=== PATIENT | female | born 1950 | race African-American/Black ===

== ENCOUNTER 2020-02-24 13:57 | Inpatient (IN) | payer MEDICARE ==
[~2020-02-24] VITALS: Ht 177.8 cm; Wt 79.8 kg
--- NOTE | 2020-02-24 14:08 | NUR ---
Patient is seen standing in the room & not following simple commands, respiration:easy. Security assistance requested.
[2020-02-24] MEDS ORDERED: SULF1TAB48 PO (14:10)
[2020-02-24] MEDS ORDERED: IBUP-1953 PO (14:10)
--- NOTE | 2020-02-24 14:11 | NUR ---
Patient was heard repeatedly saying, "Adriane forever." with both arms moving up and down across her chest.
--- NOTE | 2020-02-24 14:15 | NUR ---
Patient refused to lay down on [place] for the chest-xray per radiology staff MD Tristian notified.
[2020-02-24] MEDS ORDERED: diphenhydrAMINE 50 MG/1 ML VIAL ONE (14:29)
[2020-02-24] MEDS ORDERED: ZIPRASIDONE MESYLATE 20 MG VIAL IM ONE ×3 (14:29→14:37)
[2020-02-24] MEDS ORDERED: diphenhydrAMINE 50 MG/1 ML VIAL IM ONE (14:30)
--- NOTE | 2020-02-24 14:40 | NUR ---
* 1st vial of Geodon was wasted (10mg was ready for injection) but the medicine leaked out of the syringe into the external skin and did not go inside the patient during initial administration.
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
--- NOTE | 2020-02-24 15:14 | NUR ---
Patient is resting comfortably on gurney & following simple commands. EKG & chest x-ray were done, pending medical clearance from the ER doctor@this time.
--- NOTE | 2020-02-24 15:37 | NUR ---
MHU charge histotechnologistLEN Drew requested for the patient to wait in ER while they will pass meds in MHU. Patient is resting quietly. She follows simple commands appropriately. We will monitor closely.
--- NOTE | 2020-02-24 15:38 | NUR ---
Patient is medically cleared by Dr Levi.
--- NOTE | 2020-02-24 16:02 | NUR ---
Patient is sleeping, easily arousable, calm, respiration:easy. Patient will go to MHU as soon as possible. learning and development director requested.
--- NOTE | 2020-02-24 16:14 | NUR ---
Patient drank a cup of juice and sips of water. Dinner tray was ordered.
[2020-02-24] MEDS ORDERED: MAG HYDROX/AL HYDROX/SIMETH 30 ML LIQUID UDC PO PRN (16:15)
[2020-02-24] MEDS ORDERED: MAGNESIUM HYDROXIDE 30 ML LIQUID UDC PO PRN (16:15)
[2020-02-24] MEDS ORDERED: ACETAMINOPHEN 325 MG TABLET PO PRN (16:15)
--- NOTE | 2020-02-24 16:31 | NUR ---
Patient voided using bedpan,
[2020-02-24 16:45] VITALS: BP 127/78
--- NOTE | 2020-02-24 17:53 | NUR ---
patient is admitted from ER 72 hour hold for danger to self, found crawing on the street, and making statements of imaginary people, patient brought to the unit by cynthia,transferred to the bed, patient is intermittently sleeping and dosing off, unable to assess the level of consciousness properly, seems she is alert to herself, unable to obtain history, and other information from patient however no skin issues noted, only noted with old scars to both knees and legs. MIREYA Estrada and DR Cha barnard, continue to monitor according to facility policy. no acute distress noted.
[2020-02-24] MEDS: LORAZEPAM 1 MG TABLET PO PRN (18:28)
[2020-02-24 20:13] VITALS: BP 126/84
[2020-02-24] MEDS: TEMAZEPAM 7.5 MG CAPSULE PO PRN (22:08)
--- NOTE | 2020-02-25 05:08 | NUR ---
Received patient in sheri chair last night. Awake but confused and disoriented. Patient believed that her " Boyfriend is waiting outside. I just spoke to him". Patient was unable to provide a number for this person and unable to tell keno writer / runner where she lives. Patient noted to be very weak and total assistance was given when patient needed to go the bathroom. Physical therapy ordered for an evaluation this am. Patient slept only 4.45 hours last night and continues to be confused this am. Patient denies taking any medications at home, despite having a history of open heart surgery. Continuing to monitor for safety and behavioral issues. No acute distress at this time.
[2020-02-25 07:30] VITALS: BP 125/84
[2020-02-25 07:41] LABS: BILIRUBIN,TOTAL 0.6 mg/dL (0.2-1.0); CREATININE 1.2 mg/dL (0.6-1.3); POTASSIUM 3.3 mmol/L (3.5-5.1); TOTAL PROTEIN, SERUM 7.1 g/dL (6.4-8.2)
[2020-02-25] MEDS ORDERED: IBUPROFEN 400 MG TABLET PO PRN (09:00)
[2020-02-25] MEDS ORDERED: SULFAMETH/TRIMETH 800/160 MG TABLET PO ONE (09:00)
[2020-02-25] MEDS ORDERED: POTASSIUM CHLORIDE 20 MEQ TAB.PRT.SR PO ONE (10:45)
[2020-02-25] MEDS: LORAZEPAM 1 MG TABLET PO PRN (12:05)
--- NOTE | 2020-02-25 12:06 | NUR ---
INITIAL DISCHARGE PLAN: Pt wishes to return home [address], [place] [id number] . SW will help form a safe and proper discharge in collaboration with .
[2020-02-25 16:00] VITALS: BP 136/92
[2020-02-25 20:00] VITALS: BP 121/91
[2020-02-25] MEDS: SULFAMETH/TRIMETH 800/160 MG TABLET PO SCH (20:23)
[2020-02-26 07:30] VITALS: BP 134/86
[2020-02-26] MEDS: LORAZEPAM 1 MG TABLET PO PRN (08:20)
[2020-02-26] MEDS: SULFAMETH/TRIMETH 800/160 MG TABLET PO SCH ×2 (08:21→20:15)
[2020-02-26] MEDS: risperiDONE 0.5 MG TABLET PO SCH ×2 (08:21→20:15)
--- NOTE | 2020-02-26 10:00 | NUR ---
Pt received, appeared anxious, pacing the halls couting, then repeatedly sitting and standing in the same chair. Elevated BP, made aware, PRN Ativan and routine medications administered. Pt compliant with PO medications. BP rechecked, reduced to 134/86, 84. Encouraged Pt to rest before group. Pt cooperative, no behavioral issues or acute distress noted. Pt denies SI/HI/ AH/VH, able to make needs known, and able to CFS at this time. Will continue to monitor for safety.
--- NOTE | 2020-02-26 10:39 | NUR ---
EDITA COORDINATION OF CARE: EDITA received a call from EDITA Perez as [facility] ([phone]) stating that pt left her personal belongings behind. He states that pts purse, keys, cell phone, ID's, and insurance cards are all at [facility]. EDITA advised Chris to mail her belongings to ATT: Justine Kelley, Escort Service Attendant Printing Engineer [address] [address]. He stated it was a big object and did not know if he is able to mail it. He stated that he may be able to get someone to drop it off next week. EDITA advised him to call SW before the expected drop off and coordinate the delivery with her.
--- NOTE | 2020-02-26 12:46 | NUR ---
Firearms Report: Refinery Superintendent completed and submitted a [employer] firearms report for 5150 danger to self and grave disability certification. A copy of report has been placed in patient chart.
[2020-02-26 16:00] VITALS: BP 128/81
[2020-02-26 20:06] VITALS: BP 128/81
[2020-02-27] MEDS: TEMAZEPAM 7.5 MG CAPSULE PO PRN (02:10)
[2020-02-27] MEDS: LORAZEPAM 1 MG TABLET PO PRN (04:30)
--- NOTE | 2020-02-27 04:53 | NUR ---
Received patient at 2300 last night. Patient was pleasantly confused at that time. As the night wore on, Patient became increasingly paranoid and delusional. Patient keeps thinking that there is a man in the room. Keeps asking and shouting for her "boyfriend Mathew " . Patient ran down the rajput and was pushing on the door to the unit in the middle of the night, trying to get out. Staff continues to reorient patient and redirect patient, which works part of the time only.PRN medications given with no effect. Patient has not slept up till this time. Speech Professor noticed patient talking to self for hours, and closes the room door over and over. Snack offered but patient will not eat because she believes the food is poisonous. Continuing to monitor this patient for behavior escalation, irritability and unpredictability.
[2020-02-27 07:30] VITALS: BP 142/101
[2020-02-27] MEDS: risperiDONE 0.5 MG TABLET PO SCH (08:38)
[2020-02-27] MEDS: SULFAMETH/TRIMETH 800/160 MG TABLET PO SCH ×2 (08:38→20:07)
[2020-02-27] MEDS ORDERED: risperiDONE 1 MG TABLET PO SCH (09:00)
[2020-02-27 17:09] VITALS: BP 179/102
--- NOTE | 2020-02-27 19:50 | NUR ---
Sleeping during initial rounds. Safetymeasures and fall prevention observed.
[2020-02-27 20:00] VITALS: BP 162/90
[2020-02-27] MEDS: risperiDONE 1 MG TABLET PO SCH (20:07)
--- NOTE | 2020-02-28 06:11 | NUR ---
Shift end report: Sleep been interrupted, bothered, irritated every time its noisy. Slept fair. No complaint of pain presented. Continue on antibiotics for UTI as ordered without s/s of adverse reaction. All needs attended and met. Continue current plan of care,
[2020-02-28 07:30] VITALS: BP 129/96
[2020-02-28] MEDS: risperiDONE 1 MG TABLET PO SCH ×2 (08:30→20:13)
[2020-02-28] MEDS: SULFAMETH/TRIMETH 800/160 MG TABLET PO SCH ×2 (08:30→20:13)
--- NOTE | 2020-02-28 10:04 | NUR ---
patient AOx1, patient seen sitting in her room starring blank in the wall, patient responding to internl stimuli, having paranoid delusion, did not touch her breakfast tray, patient verbalizes asking to open the door says that somebody waiting for her, MD aware about this behavior, no distress, will continue monitor
--- NOTE | 2020-02-28 18:51 | NUR ---
patient responding to internal stimuli, compliant with medication, not eating her food ,pacing in hallway.
[2020-02-28] MEDS: LORAZEPAM 1 MG TABLET PO PRN (20:13)
--- NOTE | 2020-02-28 22:38 | NUR ---
GPS Note: Received patient in her room. Refusing to have a snack or to allow the SLASHER HAND to check her VS. Patient needed some encouragement but did take the PM medications. Patient is delusional and was making statements " My boyfriend is with the [employer], and he will be here in 15 minutes to pick me up." Despite reorienting the patient to reality of the situation, patient still is responding to visual and auditory hallucinations, shouting out at people, in the room ,that are not there. Continuing to monitor patient for safety and behavioral escalation.
[2020-02-29 07:30] VITALS: BP 126/90
[2020-02-29] MEDS: risperiDONE 1 MG TABLET PO SCH ×3 (08:43→20:50)
[2020-02-29] MEDS: SULFAMETH/TRIMETH 800/160 MG TABLET PO SCH ×3 (08:43→20:50)
--- NOTE | 2020-02-29 10:53 | NUR ---
EDITA Coordination of Care: EDITA faxed patient's referral packet for review and possible placement to [facility] / [address] [place] [address] attention to Claudia Addendum: 03/02/20 at 1247 by GURMEET QUINN Edita received a call from Claudia admin coordinator at the facility who stated that due to COVID restrictions they cannot accept new patients until further notice. Addendum: 03/03/20 at 1401 by GURMEET QUINN EDITA received a call from Claudia admissions clerk at [facility] stating they are allowed to accept new patient as of tomorrow 03/04/20. Claudia stated that patient is welcome to their facility upon discharge.
[2020-02-29 15:34] VITALS: BP 120/81
--- NOTE | 2020-02-29 20:59 | NUR ---
patient refused all her meds. Hypervigilant, suspicions, guarded. Non-compliant with care.
[2020-03-01] MEDS: risperiDONE 1 MG TABLET PO SCH ×2 (08:28→21:04)
[2020-03-01] MEDS: SULFAMETH/TRIMETH 800/160 MG TABLET PO SCH ×2 (08:28→21:04)
--- NOTE | 2020-03-01 10:53 | NUR ---
Hearing Notification: Pt has probable cause hearing today and it was upheld for Grave Disability.
[2020-03-01] MEDS: ENSURE ENLIVE (VAN) 240 ML LIQUID PO SCH (16:37)
--- NOTE | 2020-03-01 18:04 | NUR ---
received patient still responding to internal stimuli, refused all medication and meals.yelling and screaming when nurse attempted to approach her.paranoia and delusional asked nurse to get out of her room.
--- NOTE | 2020-03-01 20:35 | NUR ---
Received patient in her room ,alert verbally responsive, confused and calm re orientation provided.Compliant with medication.Continue ton ATB therapy for UTI,no a/r noted.Will continue to monitor.
--- NOTE | 2020-03-02 06:15 | NUR ---
Patient slept about 5 hours.
--- NOTE | 2020-03-02 07:30 | NUR ---
Received pt. aaox1-2 sitting in bed starring at the floor, non-interactive and this morning refusing to take her schedule medications. Patient stating "I don't need any medications"
[2020-03-02] MEDS: ENSURE ENLIVE (VAN) 240 ML LIQUID PO SCH ×2 (08:58→17:41)
[2020-03-02] MEDS: SULFAMETH/TRIMETH 800/160 MG TABLET PO SCH (09:00)
[2020-03-02] MEDS: risperiDONE 1 MG TABLET PO SCH ×3 (09:00→21:00)
--- NOTE | 2020-03-02 11:40 | NUR ---
EDITA Individual Intervention: SW met with patient and provided brief individual counseling to help patient gain insight towards her presenting problems. Patient presents calm however uncooperative with engaging in a meaningful conversation due to having active auditory hallucinations. SW attempted to ask patient questions, however patient was responding to internal stimuli and whispering things such as "I am here, do you want me to go there". SW attempted to orient patient to reality, however patient apologized to this racebook writer that she is busy talking to someone and walked away.
--- NOTE | 2020-03-02 12:47 | NUR ---
EDITA Coordination of Care: SW faxed patient's referral packet for review and possible placement to [facility] attention to Phill ([phone]) who reviewed the clinicals and stated that patient is accepted to their facility for placement.
--- NOTE | 2020-03-02 20:00 | NUR ---
Received patient sitting up in bed, asleep but arouses to name. Uncooperative. Refused medication despite explanation.
--- NOTE | 2020-03-02 23:15 | NUR ---
Seen by Dr. Eubanks. aware that patient is non compliant with medications.
--- NOTE | 2020-03-03 06:32 | NUR ---
Slept x 7.3 hours during the night. Remains evasive and non compliant with medications.
[2020-03-03] MEDS: ENSURE ENLIVE (VAN) 240 ML LIQUID PO SCH ×2 (08:00→17:21)
[2020-03-03] MEDS: risperiDONE 1 MG TABLET PO SCH ×2 (09:00→20:43)
--- NOTE | 2020-03-03 13:44 | NUR ---
EDITA Family Contact: SW received a call from patient's sister, Cait ([phone]) wanting updates on how the patient is doing and what her discharge plan is. SW stated that the patient is not stable to return back to her apartment by herself and will require a assisted facility.
[2020-03-03 20:00] VITALS: BP 130/88
--- NOTE | 2020-03-03 21:00 | NUR ---
Patient Refused hs po meds. charge nurse made aware.
--- NOTE | 2020-03-04 06:22 | NUR ---
GPS: Remain calm and cooperative with care. slept 5.30 hrs through the night. no agitation noted.
[2020-03-04 07:30] VITALS: BP 128/94
[2020-03-04] MEDS: ENSURE ENLIVE (VAN) 240 ML LIQUID PO SCH ×2 (08:00→17:00)
[2020-03-04] MEDS: risperiDONE 1 MG TABLET PO SCH ×2 (09:00→20:43)
--- NOTE | 2020-03-04 14:00 | NUR ---
Gps/Retort Load Expediter- Refusing to eat, refusing po meds., not interactive, flat affect, withdrawn. Safety reviewed, emphasized.
--- NOTE | 2020-03-04 17:09 | NUR ---
Gps/Paper Box Cutter- Tried to recheck vital signs, patient refused, when asked why she refuses v/s, patient start yelling at the staff " do you understand Cook Islander, , i dont want it taken, and get out of here". Reviewed with patient reasons why she is here in the MHU. and how we can help her .Fluids offered,refused.
[2020-03-04] MEDS: ATORVASTATIN 10 MG TABLET PO SCH (20:43)
--- NOTE | 2020-03-05 00:21 | NUR ---
GPS/ Received pt in bed sitting up and awake. Responded when interacted to and said what do you want! Made pt aware if she need human resources assistant manager and she said I do not need anything leave me alone! Pt is not showing physical aggression toward staffs or roommate at this time but very paranoid and spacing out behavior. Pt refused routine medication and said I do not take medicine. Cha Hernandez was here and aware, with new orders receive for IM med if pt refuse po meds starting tomorrow. Monitoring pt at this time with anticipation with behavior and care.
[2020-03-05] MEDS: ENSURE ENLIVE (VAN) 240 ML LIQUID PO SCH ×2 (08:00→17:40)
[2020-03-05] MEDS: HALOPERIDOL 1 MG TABLET PO SCH ×2 (09:00→12:55)
[2020-03-05] MEDS: HALOPERIDOL LACTATE 5 MG/1 ML VIAL IM PRN ×2 (09:27→12:55)
[2020-03-05] MEDS ORDERED: HALOPERIDOL LACTATE 5 MG/1 ML VIAL IM PRN (15:45)
[2020-03-05 16:00] VITALS: BP 136/96
--- NOTE | 2020-03-05 16:00 | NUR ---
Gps/Dough Maker- Was able to take a nap this pm, noted > interactions with staff, redirectable, but refused po haldol, claimed she preferred to take IM haldol. instead. Able to drink her ensures, encouraged adequate oral intake. Flat , guarded answers to simple questions. Staring spells sitting at the edge of the bed, no agitation noted
[2020-03-05 20:00] VITALS: BP 121/82
[2020-03-05] MEDS: ATORVASTATIN 10 MG TABLET PO SCH (20:10)
[2020-03-05] MEDS ORDERED: HALOPERIDOL 1 MG TABLET PO SCH (21:00)
--- NOTE | 2020-03-06 05:37 | NUR ---
GPS: Remain calm and cooperative with medication and care. plesant upon approach.assisted with ad's. no agitation noted. resting in bed comfortably.
--- NOTE | 2020-03-06 06:26 | NUR ---
GPS: slept 4.45 hrs through the night.
[2020-03-06 07:30] VITALS: BP 159/98
[2020-03-06] MEDS: ENSURE ENLIVE (VAN) 240 ML LIQUID PO SCH ×2 (08:54→16:26)
[2020-03-06] MEDS ORDERED: HALOPERIDOL 1 MG TABLET PO SCH (09:00)
[2020-03-06] MEDS ORDERED: BENZTROPINE MESYLATE 2 MG/2 ML AMPUL IM PRN (12:00)
[2020-03-06 16:18] VITALS: BP 121/93
[2020-03-06] MEDS: HALOPERIDOL 2 MG TABLET PO SCH ×2 (16:24→22:24)
[2020-03-06] MEDS: BENZTROPINE MESYLATE 0.5 MG TABLET PO SCH ×2 (16:24→22:24)
--- NOTE | 2020-03-06 16:27 | NUR ---
Gps/Rn Emergency- Patient sitting at the edge of bed, smiling when greeted happy Birthday, responded" thank you", encouraged to drink her ensure preferred chocolate per pt. Noted smiles on her face, hesitancy to talk, encouraged interaction, and to make her needs known to the staff.
[2020-03-06 20:46] VITALS: BP 128/91
[2020-03-06] MEDS: ATORVASTATIN 10 MG TABLET PO SCH (22:24)
[2020-03-07] MEDS: ENSURE ENLIVE (VAN) 240 ML LIQUID PO SCH ×2 (08:00→17:07)
[2020-03-07 08:14] LABS: BASOPHILS % (AUTO) 0.3 % (0.0-2.0); HEMOGLOBIN 16.5 g/dL (10.9-14.3); LYMPHOCYTES # (AUTO) 0.4 K/uL (20.0-40.0); LYMPHOCYTES % (AUTO) 2.9 % (20.5-51.5); MEAN CORPUSCULAR HEMOGLOBIN 31.2 uug (24.7-32.8); MEAN CORPUSCULAR HGB CONC 33 g/dL (32.3-35.6); MEAN CORPUSCULAR VOLUME 94.4 fL (75.5-95.3); MONOCYTES # (AUTO) 0.7 K/uL (2.0-10.0); MONOCYTES % (AUTO) 4.5 % (0.0-11.0); NEUTROPHILS # (AUTO) 14.1 K/uL (1.8-8.9); NEUTROPHILS % (AUTO) 92.3 % (38.5-71.5); PLATELET COUNT (AUTO) 76 K/uL (179-408); RED BLOOD CELL COUNT(AUTO) 5.29 MIL/uL (3.63-4.92); WHITE BLOOD COUNT (AUTO) 15.2 K/uL (3.8-11.8)
[2020-03-07 08:53] LABS: ALANINE AMINOTRANSFERASE 37 U/L (14-59); ALKALINE PHOSPHATASE 103 U/L (50-136); ASPARTATE AMINOTRANSFERASE 26 U/L (15-37); BILIRUBIN,DIRECT 0.1 mg/dL (0.0-0.2); BILIRUBIN,TOTAL 0.5 mg/dL (0.2-1.0); CARBON DIOXIDE 29 mmol/L (21-32); CHLORIDE 111 mmol/L (98-107); CREATININE 1.5 mg/dL (0.6-1.3); GLUCOSE 151 mg/dL (74-106); MAGNESIUM 3.2 mg/dL (1.8-2.4); PHOSPHOROUS 3.1 mg/dL (2.5-4.9); POTASSIUM 4.3 mmol/L (3.5-5.1); TOTAL PROTEIN, SERUM 8.5 g/dL (6.4-8.2); UREA NITROGEN, BLOOD 63 mg/dL (7-18)
[2020-03-07 09:14] VITALS: BP 111/75
[2020-03-07 09:18] LABS: THYROID STIMULATING HORMONE 0.232 mIU/mL (0.358-3.740)
[2020-03-07] MEDS: HALOPERIDOL 2 MG TABLET PO SCH ×3 (09:47→20:19)
[2020-03-07] MEDS: BENZTROPINE MESYLATE 0.5 MG TABLET PO SCH ×3 (09:47→20:19)
[2020-03-07] MEDS: AZITHROMYCIN 250 MG TABLET PO SCH (12:00)
--- NOTE | 2020-03-07 15:39 | NUR ---
did patient rounding. found 2mg haldol pill bedside. asked patient if she took the medication. patient states that she said yes. watched patient swallow the medication in the morning. pt suspected to pocket the medication in the mouth. will continue to monitor for behavioral changes throughout shift.
[2020-03-07 17:17] LABS: BAND % (MANUAL) 1 % (0-10); LYMPHOCYTES % (MANUAL) 6 % (20-40); MONOCYTES % (MANUAL) 5 % (2-10); NEUTROPHILS % (MANUAL) 88 % (42-75)
[2020-03-07 17:36] VITALS: BP 135/88
[2020-03-07 18:00] LABS: *BILIRUBIN,URIN NEGATIVE (NEGATIVE); *BLOOD, URINE NEGATIVE (NEGATIVE); *CLARITY,URINE CLEAR (CLEAR); *COLOR,URINE YELLOW (YELLOW); *KETONES,URINE TRACE (NEGATIVE); *UROBILINOGEN,URINE 0.2 E.U./dl (NORMAL); LEUKOCYTE ESTERASE ,URINE NEGATIVE (NEGATIVE); NITRITE, URINE NEGATIVE (NEGATIVE); PH,URINE 5.5 (5.0-8.0); UGLUCOSE NEGATIVE (NEGATIVE)
[2020-03-07] MEDS ORDERED: HALOPERIDOL DECANOATE 50 MG/1 ML AMPUL IM ONE (19:00)
[2020-03-07 20:00] VITALS: BP 135/85
[2020-03-07] MEDS: ATORVASTATIN 10 MG TABLET PO SCH (20:20)
[2020-03-07 20:24] LABS: BACTERIA,URINE NONE SEEN /HPF (NONE SEEN); RBC,URINE 0-3 /HPF (0-3); SQUAMOUS EPITHELIAL CELL,UR FEW /HPF (NONE SEEN); WBC,URINE 0-3 /HPF (0-3)
[2020-03-07 20:25] LABS: URINE AMORPHOUS URATE MODERATE /HPF
--- NOTE | 2020-03-07 20:57 | NUR ---
Pt atb therapy Azithromycin 250mg tab was administered by morning nurse. per outgoing nurse.
--- NOTE | 2020-03-08 04:53 | NUR ---
GPS/rn - Pt was up in bed and resting. Pt responded more appropriate verbally today and no excessive behavior noted. Pt was cooperative with PO medications and no reise protocol was done. Pt c/o cold and extra blanket was given. Will monitor pt and anticipate any changes. Q/15mins head count ongoing.
[2020-03-08 06:54] LABS: BASOPHILS # (AUTO) 0.1 K/uL (0.0-8.0); BASOPHILS % (AUTO) 0.5 % (0.0-2.0); HEMATOCRIT 50.5 % (31.2-41.9); HEMOGLOBIN 16.5 g/dL (10.9-14.3); LYMPHOCYTES # (AUTO) 0.4 K/uL (20.0-40.0); LYMPHOCYTES % (AUTO) 2.7 % (20.5-51.5); MEAN CORPUSCULAR HEMOGLOBIN 30.7 uug (24.7-32.8); MEAN CORPUSCULAR HGB CONC 33 g/dL (32.3-35.6); MEAN CORPUSCULAR VOLUME 94.3 fL (75.5-95.3); MONOCYTES # (AUTO) 0.7 K/uL (2.0-10.0); MONOCYTES % (AUTO) 4.4 % (0.0-11.0); NEUTROPHILS # (AUTO) 15.4 K/uL (1.8-8.9); NEUTROPHILS % (AUTO) 92.4 % (38.5-71.5); PLATELET COUNT (AUTO) 71 K/uL (179-408); RED BLOOD CELL COUNT(AUTO) 5.36 MIL/uL (3.63-4.92); WHITE BLOOD COUNT (AUTO) 16.6 K/uL (3.8-11.8)
[2020-03-08 07:03] LABS: CARBON DIOXIDE 30 mmol/L (21-32); CHLORIDE 113 mmol/L (98-107); CREATININE 1.7 mg/dL (0.6-1.3); GLUCOSE 154 mg/dL (74-106); POTASSIUM 4.1 mmol/L (3.5-5.1); UREA NITROGEN, BLOOD 66 mg/dL (7-18)
[2020-03-08 07:43] VITALS: BP 136/103
[2020-03-08] MEDS: ENSURE ENLIVE (VAN) 240 ML LIQUID PO SCH (08:00)
[2020-03-08] MEDS: BENZTROPINE MESYLATE 0.5 MG TABLET PO SCH (08:35)
[2020-03-08] MEDS: HALOPERIDOL 2 MG TABLET PO SCH (08:35)
[2020-03-08] MEDS ORDERED: HALOPERIDOL DECANOATE 50 MG/1 ML AMPUL IM ONE (09:00)
--- NOTE | 2020-03-08 10:51 | NUR ---
EDITA Individual Intervention: SW met with patient to provide brief individual counseling to help patient gain insight towards her presenting problems. Patient was observed sitting at the edge of her bed staring at the wall. This health underwriter attempted to ask patient questions regarding her current mood and feelings. Patient stated "I am fine you don't need to know more than that". Patient appeared distracted by internal stimuli and was unable to engage in a proper conversation. SE encouraged patient to join group activities and interact with peers. Pt stated "I don't want to, thanks".
[2020-03-08] MEDS: AZITHROMYCIN 250 MG TABLET PO SCH (11:09)
--- NOTE | 2020-03-08 14:43 | NUR ---
received a call from the lab , per jodie patients D-dimer critically high, SIGNAL INTELLIGENCE ANALYST Merline aware with new orders made
[2020-03-08] MEDS ORDERED: ENOXAPARIN SODIUM 40 MG/0.4 ML DISP.SYRIN SQ SCH (15:00)
[2020-03-08 16:11] VITALS: BP 126/100
--- NOTE | 2020-03-08 16:52 | NUR ---
Patient transferred to medical - surgical floor per order. Prior to discharge patient received a Lovenox injection as ordered and a Covid testing was done. Report given to [place] RN. Patient agreeable to transfer and is medication compliant at this time. Patients 5250 D/C per Dr. Eubanks and Francisco Borrego BUSH REGENERATOR will continue care. Order received for discharge from MHU and admit to Medical -Surgical floor. Patient denies SI/ HI at this time, and verbalized understanding of transfer. No acute distress noted.
[2020-03-08] MEDS ORDERED: AZIT500T PO (18:19)
[2020-03-08] MEDS ORDERED: LORA-259 PO (18:19)
[2020-03-08] MEDS ORDERED: ENOX40DI SQ (18:19)
[2020-03-08] MEDS ORDERED: LACT-246 PO (18:19)
[2020-03-08] MEDS ORDERED: MAG30ORA PO (18:19)
[2020-03-08] MEDS ORDERED: ACET-2154 PO ×2 (18:19)
[2020-03-08] MEDS ORDERED: MAGN400O6 PO (18:19)
[2020-03-08] MEDS ORDERED: IBUP-1953 PO (18:19)
[2020-03-08] MEDS ORDERED: ATOR10TA PO (18:19)
[2020-03-08] MEDS ORDERED: BENZ0.5T43 PO (18:19)
[2020-03-08] MEDS ORDERED: HALO2TAB PO ×2 (18:19)
[2020-03-08] MEDS ORDERED: TEMA15CA PO (18:19)
--- NOTE | 2020-03-09 10:35 | NUR ---
GPS Transfer Note and Discharge Plan: Patient was discharged from MHU and transferred to the Medical Floor due to Sepsis, PNA, r/o COVID. Patient's 5[address] was discontinued to Dr. Eubanks. [facility] at [facility], [place] [address] ([phone]) and can admit upon discharge from the hospital. EDITA spoke with [facility] recruitment coordinator at [facility] who stated patient can admit to their facility when discharged from the hospital. Patient is alert and oriented x2, and is unable to plan for self-care, and denies any suicidal or homicidal ideation. Patient is aware and agreeable with discharge plans. Patient presents with anxious mood and congruent affect. Patient will continue to follow-up with her Psychiatrist Dr. Eubanks and Lay Out [place] [address] ([phone]). Patient does not have any supportive contacts to notify of discharge plans. EDITA Perez at [facility] ([phone]) has pts belongings (purse, cell phone, keys, Ids).
[2020-03-11] MEDS ORDERED: PANT40TA2 PO (12:16)
[2020-03-11] MEDS ORDERED: APIX5TAB PO (12:16)
== END 2020-03-08 17:03 | disposition short-term general hospital (02) | DRG 885 ==
LOC: ER 13:57 → GPS 15:39
PROVIDERS: ADMIT Psychiatry & Neurology Psychiatry; ATTEND Family Medicine
DX: F29 Unspecified psychosis not due to a substance or known physiological condition (principal); N17.0 Acute kidney failure with tubular necrosis; J18.9 Pneumonia, unspecified organism; F03.91 Unspecified dementia, unspecified severity, with behavioral disturbance; E44.1 Mild protein-calorie malnutrition; E78.5 Hyperlipidemia, unspecified; E87.6 Hypokalemia; E83.52 Hypercalcemia; I25.10 Atherosclerotic heart disease of native coronary artery without angina pectoris; Z95.1 Presence of aortocoronary bypass graft; F03.90 Unspecified dementia, unspecified severity, without behavioral disturbance, psychotic disturbance, mood disturbance, and anxiety; Z73.6 Limitation of activities due to disability; R73.9 Hyperglycemia, unspecified; Z68.25 Body mass index [BMI] 25.0-25.9, adult; R74.0 Nonspecific elevation of levels of transaminase and lactic acid dehydrogenase [LDH]; F25.0 Schizoaffective disorder, bipolar type; Z91.19 Patient's noncompliance with other medical treatment and regimen
CPT/HCPCS: 36415; 70030-TC; 71045; 83615; 83735; 84100; 84443; 85025; 86140; 87040; 93005; 93307; A4663; J1200; J1630; J1631; J1650; J3486; Q0144; U0003-CS

== ENCOUNTER 2020-03-08 16:29 | Inpatient (IN) | payer MEDICARE ==
[~2020-03-08] VITALS: Ht 177.8 cm; Wt 84.8 kg
[~2020-03-08 16:29] MED LIST: IBUP-1953 PO; SULF1TAB48 PO
[2020-03-08 17:04] VITALS: BP 137/93
[2020-03-08] MEDS ORDERED: ATOR10TA PO (18:19)
[2020-03-08] MEDS ORDERED: LORA-259 PO (18:19)
[2020-03-08] MEDS ORDERED: AZIT500T PO (18:19)
[2020-03-08] MEDS ORDERED: HALO2TAB PO ×2 (18:19)
[2020-03-08] MEDS ORDERED: TEMA15CA PO (18:19)
[2020-03-08] MEDS ORDERED: MAGN400O6 PO (18:19)
[2020-03-08] MEDS ORDERED: LACT-246 PO (18:19)
[2020-03-08] MEDS ORDERED: BENZ0.5T43 PO (18:19)
[2020-03-08] MEDS ORDERED: MAG30ORA PO (18:19)
[2020-03-08] MEDS ORDERED: ENOX40DI SQ (18:19)
[2020-03-08] MEDS ORDERED: IBUP-1953 PO (18:19)
[2020-03-08] MEDS ORDERED: ACET-2154 PO ×2 (18:19)
--- NOTE | 2020-03-08 18:54 | NUR ---
RECEIVED PATIENT AWAKE, ALERT AND ORIENTED, CALM DEMEANOR. RIGHT LATERAL ANKLE SCAB NOTED. DENIES COUGHING. NO FEVER. NO S/S OF DISTRESS OR SOB. VS WNL. Addendum: 03/08/20 at 1858 by FLOR ARMENTA RN HOME MED LIST ENTERED. PATIENT ADMISSION NOT FULLY FINISHED. WILL ENDORSE TO MATERIAL CONTROL CLERK.
[2020-03-08] MEDS ORDERED: MAGNESIUM HYDROXIDE 30 ML LIQUID UDC PO PRN (19:15)
[2020-03-08] MEDS ORDERED: ACETAMINOPHEN 325 MG TABLET PO PRN (19:15)
[2020-03-08] MEDS ORDERED: Z GUARD REMEDY PASTE 57 GM TUBE TOP PRN (19:15)
[2020-03-08] MEDS ORDERED: TEMAZEPAM 15 MG CAPSULE PO PRN (19:15)
[2020-03-08] MEDS ORDERED: LORAZEPAM 1 MG TABLET PO PRN (19:15)
[2020-03-08] MEDS ORDERED: ONDANSETRON 4 MG/2 ML VIAL IV PRN (19:15)
[2020-03-08] MEDS ORDERED: ZOLPIDEM 5 MG TABLET PO PRN (19:15)
[2020-03-08] MEDS ORDERED: HYDROCODONE/APAP 5-325MG TABLET PO PRN (19:15)
[2020-03-08 20:19] VITALS: BP 122/85
[2020-03-08] MEDS: ATORVASTATIN 10 MG TABLET PO SCH (20:45)
[2020-03-08] MEDS: HALOPERIDOL 2 MG TABLET PO SCH (20:45)
[2020-03-08] MEDS: CEFTRIAXONE 1 G in IV DEXTROSE 5% 50 ML IV SCH (21:21)
--- NOTE | 2020-03-08 21:55 | NUR ---
Patient admitted from MHU. Dx: Sepsis, PNA, r/O COVID. During initial rounds, patient is guarded, agitated. Introduced myself as her nurse for tonight and patient stated "I don't have a nurse tonight, I am going to leave this place" Explained to patient why she was here for possible PNA or infection, patient stated she has no infection, she is perfectly healthy. Patient is oriented to person and place. Hold was d/c, called Dr. Eubanks and explained what was happening. Dr. Eubanks stated that he wants to reinstate the 14 day hold up on 03/11 and order for 1:1 sitter. Initially patient refused to take any medications and insert an IV. Offered patient some food and explained to patient again reason for hospitalization and reassured her. Patient calmed down and took PO medication, she is on reise, but patient agreed to take PO Haldol. Was able to insert IV and start antibiotics. Oriented patient to unit and room. Patient on droplet/contact isolation. Bed is low and locked, call light within reach. Will continue to monitor.
--- NOTE | 2020-03-08 22:21 | NUR ---
Admission assessment obtained from previous records as patient refuses to answer some questions. Patient denies any PMH, any family, and says she lives alone in a house. Patient is pleasant and cooperative with care at this time. Able to ambulate to restroom. Will continue to monitor.
[2020-03-08] MEDS ORDERED: HALOPERIDOL LACTATE 5 MG/1 ML VIAL IM PRN (23:45)
[2020-03-09 06:11] LABS: BASOPHILS % (AUTO) 0.1 % (0.0-2.0); EOSINOPHILS % (AUTO) 0.2 % (0.0-7.0); HEMATOCRIT 43.6 % (31.2-41.9); HEMOGLOBIN 14.3 g/dL (10.9-14.3); LYMPHOCYTES # (AUTO) 0.8 K/uL (20.0-40.0); LYMPHOCYTES % (AUTO) 7.4 % (20.5-51.5); MEAN CORPUSCULAR HEMOGLOBIN 30.9 uug (24.7-32.8); MEAN CORPUSCULAR HGB CONC 33 g/dL (32.3-35.6); MEAN CORPUSCULAR VOLUME 94.2 fL (75.5-95.3); MONOCYTES # (AUTO) 0.7 K/uL (2.0-10.0); MONOCYTES % (AUTO) 6.6 % (0.0-11.0); NEUTROPHILS # (AUTO) 9.8 K/uL (1.8-8.9); NEUTROPHILS % (AUTO) 85.7 % (38.5-71.5); RED BLOOD CELL COUNT(AUTO) 4.63 MIL/uL (3.63-4.92); WHITE BLOOD COUNT (AUTO) 11.4 K/uL (3.8-11.8)
[2020-03-09 06:14] LABS: CARBON DIOXIDE 31 mmol/L (21-32); CHLORIDE 110 mmol/L (98-107); CREATININE 1.4 mg/dL (0.6-1.3); GLUCOSE 125 mg/dL (74-106); MAGNESIUM 2.5 mg/dL (1.8-2.4); PHOSPHOROUS 3.7 mg/dL (2.5-4.9); UREA NITROGEN, BLOOD 50 mg/dL (7-18)
[2020-03-09] MEDS: PANTOPRAZOLE SODIUM 40 MG TABLET.DR PO SCH (06:14)
[2020-03-09 06:16] LABS: PLATELET COUNT (AUTO) 65 K/uL (179-408)
[2020-03-09 06:23] VITALS: BP 125/74
[2020-03-09] MEDS ORDERED: HEPARIN SODIUM,PORCINE 5,000 UNITS/ML VIAL SQ SCH (09:00)
--- NOTE | 2020-03-09 10:41 | NUR ---
GPS Transfer Note and Discharge Plan: Patient was discharged from MHU and transferred to the Medical Floor due to Sepsis, PNA, r/o COVID. Patient's 5[address] hold was discontinued [address] Dr. Eubanks. Patient was accepted at [facility] facility, [place] [address] ([phone]) and can admit upon discharge from the hospital. EDITA spoke with [facility] visual coordinator at [facility] who stated patient can admit to their facility when discharged from the hospital. Patient is alert and oriented x2, and is unable to plan for self-care, and denies any suicidal or homicidal ideation. Patient is aware and agreeable with discharge plans. Patient presents with anxious mood and congruent affect. Patient will continue to follow-up with her Psychiatrist Dr. Eubanks and Night Clerk Aud[place] [address] ([phone]). Patient does not have any supportive contacts to notify of discharge plans. EDITA Perez at [facility] ([phone]) has pts belongings (purse, cell phone, keys, Ids).
[2020-03-09] MEDS: HALOPERIDOL 2 MG TABLET PO SCH ×3 (11:16→20:08)
[2020-03-09] MEDS: ENSURE ENLIVE (VAN) 240 ML LIQUID PO SCH ×2 (11:19→16:00)
[2020-03-09] MEDS: BENZTROPINE MESYLATE 0.5 MG TABLET PO SCH ×3 (11:19→16:00)
[2020-03-09] MEDS ORDERED: AZITHROMYCIN IV 500 MG in IV DEXTROSE 5% 250 ML IV SCH (12:00)
[2020-03-09 12:45] VITALS: BP 106/72
--- NOTE | 2020-03-09 13:09 | NUR ---
Received phone call from Dr. Stevens from Radiology in regards to the Bilateral US study performed today. Dr. Rogers notified of radiologists report and anticoagulation will be started for the patient per Dr. Rogers.
--- NOTE | 2020-03-09 13:14 | NUR ---
EDITA Family Contact: SW spoke with patient's sister, Cait ([phone]) and informed of patient's transfer to the medical floor from MHU. Cait requested to stay updated about the pt's treatment and discharge plan.
--- NOTE | 2020-03-09 14:57 | NUR ---
EDITA Note: EDITA spoke with Dr. Eubanks who stated that he is not yet sure when the patient will be ready for discharge, either to a Penitentiary Facility or back to MHU.
[2020-03-09] MEDS: APIXABAN 5 MG TABLET PO SCH ×2 (15:43→20:09)
[2020-03-09 15:50] VITALS: BP 106/72
--- NOTE | 2020-03-09 19:10 | NUR ---
Pt in bed, awake. Pt is cooperative, flat affect. Denies any acute distress or pain at this time. V/S stable on room air. IV on the Rhand is intact. Sitter on site noted. Safety measures in place. Bed low and locked in position. Will continue with the plan of care.
[2020-03-09] MEDS: ATORVASTATIN 10 MG TABLET PO SCH (20:08)
[2020-03-09] MEDS: CEFTRIAXONE 1 G in IV DEXTROSE 5% 50 ML IV SCH (20:08)
[2020-03-09 20:43] VITALS: BP 114/81
[2020-03-10] MEDS: PANTOPRAZOLE SODIUM 40 MG TABLET.DR PO SCH (06:06)
[2020-03-10 06:21] LABS: BASOPHILS % (AUTO) 0.1 % (0.0-2.0); EOSINOPHILS % (AUTO) 0.5 % (0.0-7.0); HEMATOCRIT 44.2 % (31.2-41.9); HEMOGLOBIN 14.6 g/dL (10.9-14.3); LYMPHOCYTES % (AUTO) 12.9 % (20.5-51.5); MEAN CORPUSCULAR HEMOGLOBIN 31.1 uug (24.7-32.8); MEAN CORPUSCULAR HGB CONC 33 g/dL (32.3-35.6); MEAN CORPUSCULAR VOLUME 94.4 fL (75.5-95.3); MONOCYTES # (AUTO) 0.6 K/uL (2.0-10.0); MONOCYTES % (AUTO) 7.3 % (0.0-11.0); NEUTROPHILS % (AUTO) 79.2 % (38.5-71.5); RED BLOOD CELL COUNT(AUTO) 4.68 MIL/uL (3.63-4.92); WHITE BLOOD COUNT (AUTO) 7.6 K/uL (3.8-11.8)
[2020-03-10 06:25] LABS: PLATELET COUNT (AUTO) 66 K/uL (179-408)
--- NOTE | 2020-03-10 06:27 | NUR ---
Pt slept intermittently. Patient remained calm and cooperative through the night. V/S stable on room air. All prescribed medications given, pt tolerated. Sitter on site. Comfort care and needs attended. Safety measures in place. Will endorse to the oncoming nurse accordingly.
[2020-03-10 06:58] LABS: BILIRUBIN,DIRECT 0.1 mg/dL (0.0-0.2); BILIRUBIN,TOTAL 0.5 mg/dL (0.2-1.0); CREATININE 1.2 mg/dL (0.6-1.3); MAGNESIUM 2.7 mg/dL (1.8-2.4); PHOSPHOROUS 3.1 mg/dL (2.5-4.9); POTASSIUM 4.1 mmol/L (3.5-5.1); TOTAL PROTEIN, SERUM 6.5 g/dL (6.4-8.2)
[2020-03-10 08:01] LABS: THYROID STIMULATING HORMONE 0.669 mIU/mL (0.358-3.740)
[2020-03-10] MEDS: BENZTROPINE MESYLATE 0.5 MG TABLET PO SCH ×3 (08:02→17:57)
[2020-03-10] MEDS: HALOPERIDOL 2 MG TABLET PO SCH ×3 (08:03→21:33)
[2020-03-10] MEDS: ENSURE ENLIVE (VAN) 240 ML LIQUID PO SCH ×2 (08:04→17:59)
[2020-03-10] MEDS: APIXABAN 5 MG TABLET PO SCH ×2 (08:06→21:34)
[2020-03-10 09:30] VITALS: BP 118/77
--- NOTE | 2020-03-10 09:30 | NUR ---
Received patient in bed with a sitter by bed side for safety; Patient is AAO x 2-3. Able to express needs. Vital sings stable. NO complains of pain at this time. Patient was compliant with medications. Denies and SI up on assessment. Patient also compliant with most care. No agitation noted. Safety measures in place and will continue with care.
--- NOTE | 2020-03-10 13:20 | NUR ---
Patient in bed with sitter in the room, calm and watching TV. Safety measures in place, need attended and will continue with care.
[2020-03-10 14:00] VITALS: BP 118/77
[2020-03-10 17:08] LABS: *BILIRUBIN,URIN NEGATIVE (NEGATIVE); *CLARITY,URINE SLIGHTLY CLOUDY (CLEAR); *COLOR,URINE YELLOW (YELLOW); *KETONES,URINE NEGATIVE (NEGATIVE); *UROBILINOGEN,URINE 0.2 E.U./dl (NORMAL); LEUKOCYTE ESTERASE ,URINE NEGATIVE (NEGATIVE); NITRITE, URINE NEGATIVE (NEGATIVE); PH,URINE 5.5 (5.0-8.0); UGLUCOSE NEGATIVE (NEGATIVE)
[2020-03-10 17:09] LABS: *CREATININE,URINE 269.5 mg/dL (30-125); *URINE TOTAL PROTEIN RANDOM 22.7 mg/dL (<150/24HR)
[2020-03-10 17:10] LABS: *BLOOD, URINE TRACE (NEGATIVE)
--- NOTE | 2020-03-10 19:28 | NUR ---
End of shift report given to PM nurse.
--- NOTE | 2020-03-10 19:30 | NUR ---
Pt in bed, awake. Pt is more pleasant and smiles more often now. Denies any pain or SOB. Sitter is inside the room. V/S stable on room air. Safety measures in place. Will continue with the plan of care
[2020-03-10 20:00] VITALS: BP 102/72
[2020-03-10 21:17] LABS: BACTERIA,URINE FEW /HPF (NONE SEEN); SQUAMOUS EPITHELIAL CELL,UR MANY /HPF (NONE SEEN)
[2020-03-10] MEDS: ATORVASTATIN 10 MG TABLET PO SCH (21:33)
[2020-03-10] MEDS: CEFTRIAXONE 1 G in IV DEXTROSE 5% 50 ML IV SCH (21:33)
[2020-03-11 05:08] VITALS: BP 116/78
[2020-03-11] MEDS: PANTOPRAZOLE SODIUM 40 MG TABLET.DR PO SCH (06:17)
[2020-03-11 06:27] LABS: BASOPHILS % (AUTO) 0.2 % (0.0-2.0); EOSINOPHILS # (AUTO) 0.1 K/uL (0.0-0.7); EOSINOPHILS % (AUTO) 1.3 % (0.0-7.0); HEMATOCRIT 40.7 % (31.2-41.9); HEMOGLOBIN 13.5 g/dL (10.9-14.3); MEAN CORPUSCULAR HEMOGLOBIN 31.1 uug (24.7-32.8); MEAN CORPUSCULAR HGB CONC 33 g/dL (32.3-35.6); MEAN CORPUSCULAR VOLUME 93.7 fL (75.5-95.3); MONOCYTES # (AUTO) 0.6 K/uL (2.0-10.0); MONOCYTES % (AUTO) 7.1 % (0.0-11.0); NEUTROPHILS # (AUTO) 6.5 K/uL (1.8-8.9); NEUTROPHILS % (AUTO) 79.4 % (38.5-71.5); RED BLOOD CELL COUNT(AUTO) 4.35 MIL/uL (3.63-4.92); WHITE BLOOD COUNT (AUTO) 8.1 K/uL (3.8-11.8)
[2020-03-11 06:28] LABS: PLATELET COUNT (AUTO) 80 K/uL (179-408)
--- NOTE | 2020-03-11 07:00 | NUR ---
Pt slept through the night. Denies acute distress or pain at this time. V/S stable on room air. Pt calm and cooperative. Took all prescribed medications. Sitter on the bedside. Comfort care and needs attended. Safety measures in place. Call light within reach. Will endorse to the oncoming nurse.
[2020-03-11 07:01] LABS: CREATININE 1.2 mg/dL (0.6-1.3); MAGNESIUM 2.2 mg/dL (1.8-2.4); PHOSPHOROUS 2.5 mg/dL (2.5-4.9); POTASSIUM 3.6 mmol/L (3.5-5.1)
[2020-03-11 07:30] VITALS: BP 104/66
[2020-03-11] MEDS: HALOPERIDOL 2 MG TABLET PO SCH (07:41)
[2020-03-11] MEDS: BENZTROPINE MESYLATE 0.5 MG TABLET PO SCH ×3 (07:41→16:12)
[2020-03-11] MEDS: APIXABAN 5 MG TABLET PO SCH (07:41)
[2020-03-11] MEDS: ENSURE ENLIVE (VAN) 240 ML LIQUID PO SCH ×2 (07:42→16:13)
[2020-03-11 09:11] LABS: *IMMUNOGLOBULIN G, SERUM 1272 mg/dL (586-1602); IMMUNOGLOBULIN A, SERUM 249 mg/dL (64-422); IMMUNOGLOBULIN M, SERUM 140 mg/dL (26-217)
[2020-03-11 11:20] VITALS: BP 93/65
[2020-03-11 12:06] LABS: A/G RATIO 0.9 (0.7-1.7); ALBUMIN 3.1 g/dL (2.9-4.4); ALPHA-1-GLOBULIN 0.3 g/dL (0.0-0.4); ALPHA-2-GLOBULIN 0.7 g/dL (0.4-1.0); GAMMA GLOBULIN 1.4 g/dL (0.4-1.8); GLOBULIN, TOTAL 3.4 g/dL (2.2-3.9); M-SPIKE Not Observed g/dL (Not Observed)
[2020-03-11] MEDS ORDERED: PANT40TA2 PO (12:16)
[2020-03-11] MEDS ORDERED: APIX5TAB PO (12:16)
--- NOTE | 2020-03-11 13:51 | NUR ---
dc report given to miley leroy over jaiden barrios
[2020-03-11 15:37] VITALS: BP 115/72
--- NOTE | 2020-03-11 17:37 | NUR ---
dc orders received noted and carried out,dc heplock per md orders.rn report given to the residential.pt left the facility via ambulances in stable condition
--- NOTE | 2020-03-14 12:29 | NUR ---
EDITA FAMILY CONTACT: SW received a call from patient's sister, Cait ([phone]) requesting discharge information. Per sister, she called [facility] and she was informed that the pt was not there. Sister stated that she contacted [employer] for a wellness check and they confirmed that pt was at the facility but then sister called again and she was informed that she wasn't. Per sister she believes her sister is lost and wants help in locating her. SW contact Claudia, pesticide use medical coordinator at [facility] who confirmed pt is a resident at the facility however, pt has requested that her sister not be notified or given any information about her. SW informed sister of this and sister acknowledged the information.
[2020-03-16] MEDS ORDERED: APIXABAN 5 MG TABLET PO SCH (09:00)
== END 2020-03-11 17:45 | DRG 682 ==
LOC: MEDSURG3 16:29
PROVIDERS: ADMIT Student in an Organized Health Care Education/Training Program; ATTEND Student in an Organized Health Care Education/Training Program
DX: N17.0 Acute kidney failure with tubular necrosis (principal); J15.9 Unspecified bacterial pneumonia; R65.10 Systemic inflammatory response syndrome (SIRS) of non-infectious origin without acute organ dysfunction; I82.432 Acute embolism and thrombosis of left popliteal vein; I82.453 Acute embolism and thrombosis of peroneal vein, bilateral; F23 Brief psychotic disorder; E44.1 Mild protein-calorie malnutrition; D72.829 Elevated white blood cell count, unspecified; D69.6 Thrombocytopenia, unspecified; E78.5 Hyperlipidemia, unspecified; E83.52 Hypercalcemia; E87.6 Hypokalemia; Z91.19 Patient's noncompliance with other medical treatment and regimen; I25.10 Atherosclerotic heart disease of native coronary artery without angina pectoris; Z95.1 Presence of aortocoronary bypass graft; F03.90 Unspecified dementia, unspecified severity, without behavioral disturbance, psychotic disturbance, mood disturbance, and anxiety; R74.01 Elevation of levels of liver transaminase levels; R73.9 Hyperglycemia, unspecified; E88.09 Other disorders of plasma-protein metabolism, not elsewhere classified
CPT/HCPCS: 36415; 71250; 76770; 82747; 82784; 83735; 84100; 84155; 84156; 84165; 84300; 84443; 85014; 85025; 86334; 93005; G0378; J0456; J0696; J1644; J7050; J7060